=== PATIENT | female | born 1950 | race Caucasian/White ===

== ENCOUNTER 2022-10-23 16:34 | Inpatient (IN) | payer MEDICARE, BC ==
[~2022-10-23] VITALS: Ht 170.2 cm; Wt 88.9 kg
--- NOTE | 2022-10-23 16:51 | NUR ---
[id number] FROM HOME FOR RIGHT HIP PAIN S/P MECHANICAL FALL. NO LOC NO HEAD INJURY. PT IS ALSO COMPLAINING OF RIGHT SIDED CHEST WALL PAIN. PT RECEIVED 100MCG OF [employer] COMMUNITY RECREATION COORDINATOR. PT STATES HER PAIN IS TOLERABLE WHEN SHE IS STILL BUT IS 10/10 WHEN SHE SLIGHTLY MOVES.
[2022-10-23] MEDS ORDERED: MORPHINE SULFATE INJ 2 MG/ML DISP.SYRIN IV ONE (17:00)
[2022-10-23] MEDS ORDERED: MORPHINE SULFATE INJ 2 MG/ML DISP.SYRIN ONE (17:02)
--- NOTE | 2022-10-23 17:44 | NUR ---
PT RETURNED FROM CT VIA [facility]
[2022-10-23] MEDS ORDERED: KETOROLAC TROMETHAMINE INJ 30 MG/ML VIAL IV ONE (18:30)
[2022-10-23] MEDS ORDERED: KETOROLAC TROMETHAMINE INJ 30 MG/ML VIAL ONE (18:35)
[2022-10-23 18:46] LABS: BASOPHILS % (AUTO) 0.3 % (0.0-2.0); EOSINOPHILS % (AUTO) 0.5 % (0.0-6.0); HEMATOCRIT 42 % (33-45); HEMOGLOBIN 13.5 g/dL (11.5-14.8); LYMPHOCYTES # (AUTO) 1.8 K/uL (0.8-4.8); LYMPHOCYTES % (AUTO) 11.4 % (20.0-44.0); MEAN CORPUSCULAR HGB CONC 32 g/dl (31.0-36.0); MEAN CORPUSCULAR VOLUME 95 fL (82-100); MONOCYTES # (AUTO) 0.6 K/uL (0.1-1.30); MONOCYTES % (AUTO) 3.8 % (2.0-12.0); NEUTROPHILS # (AUTO) 13.5 K/uL (1.8-8.9); PLATELET COUNT (AUTO) 380 K/uL (150-450); RED BLOOD CELL COUNT(AUTO) 4.44 MIL/uL (4.0-5.2)
--- NOTE | 2022-10-23 18:49 | NUR ---
MARIANO COLLECTED AND SENT
[2022-10-23 19:03] LABS: CALCIUM, SERUM 9.5 mg/dL (8.5-10.1); CREATININE 0.9 mg/dL (0.6-1.3); POTASSIUM 2.9 mmol/L (3.5-5.1)
--- NOTE | 2022-10-23 19:27 | NUR ---
[facility] CALLED BUILDINGS PAINTER PAGED.
[2022-10-23] MEDS ORDERED: POTASSIUM CHLORIDE 20 MEQ POWDER PACKET PO ONE (19:30)
--- NOTE | 2022-10-23 19:30 | NUR ---
RECEIVED REPORT FROM EFREM ROBLERO. PT IS FOR ADMISSION D/T RIGHT FEMUR FRACTURE. PT IS AAPX4. ABLE TO MAKE NEEDS KNOWN. HAS IV MARKUS ON RIGHT AC G18. ATTACHED TO MONITOR. VITALS CHECKED.
[2022-10-23] MEDS ORDERED: Z GUARD REMEDY 4 OZ OINT TP PRN (20:30)
[2022-10-23] MEDS ORDERED: MAGNESIUM HYDROXIDE 30 ML UDC PO PRN (20:30)
[2022-10-23] MEDS ORDERED: ACETAMINOPHEN 325 MG TABLET PO PRN (20:30)
[2022-10-23] MEDS ORDERED: ONDANSETRON HCL/PF 4 MG/2 ML VIAL IVP PRN (20:30)
--- NOTE | 2022-10-23 20:31 | NUR ---
REPORT GIVEN TO EFREM FELIX
--- NOTE | 2022-10-23 20:52 | NUR ---
TRANSFERRED TO ROOM VIA HOSPITAL BED
--- NOTE | 2022-10-23 21:30 | NUR ---
FIRE OFFICER ADMITTING NOTES ADMITTED A 72 YEAR OLD FEMALE FROM ER CAME IN WITH RANDALL, WITH RIGHT HIP FRACTURE AND RIGHT RIB PAIN. TRANSFERRED PATIENT SAFELY AND SECURED, WITH IV ACCESS AT LEFT AC #18G PATENT AND INTACT. HEAD TO TOE PHYSICAL ASSESSMENT DONE, HISTORY TAKEN AND RECORDED, PICTURE TAKEN PLACED ON CHART. VITALS SIGNS TAKEN AND RECORDED,PM CARE RENDERED, ATTENDING PHYSICIAN INFORMED, MEDICATION RECONCILE DONE.WITH ORDER'S MADE AND CARRIED OUT. ORIENTATION TO THE UNIT DONE. KEPT BED ON LOWER LOCKED POSITION, KEPT SIDE RAILS UP X 2 ALL THE TIME, SAFETY PRECAUTIONS DONE, CONTINUE TO MONITOR
[2022-10-23] MEDS: MORPHINE SULFATE INJ 2 MG/ML DISP.SYRIN IV PRN (22:28)
--- NOTE | 2022-10-23 22:30 | NUR ---
RN NOTES RECEIVED ORDER FOR CHANEY CATHETER INSERTION, INSERTED F16 CHANEY CATHETER CONNECTED TO URINE BAG NOTED URINE OUTPUT, URINE SPECIMEN COLLECTED AND SENT TO LABORATORY. WILL CONTINUE TO MONITOR
[2022-10-23] MEDS ORDERED: VENL150C2 PO (23:48)
[2022-10-23] MEDS ORDERED: LISI40TA13 PO (23:48)
[2022-10-23] MEDS ORDERED: SERT25TA PO (23:48)
[2022-10-23] MEDS ORDERED: FLUT1BLS IH (23:48)
[2022-10-23] MEDS ORDERED: HYDR25TA4 PO (23:48)
[2022-10-23] MEDS ORDERED: CHOL100045 PO (23:48)
[2022-10-23] MEDS ORDERED: ICOS1CAP PO (23:48)
[2022-10-23] MEDS ORDERED: AMLO10TA4 PO (23:48)
[2022-10-23] MEDS ORDERED: ASPI-1420 PO (23:48)
[2022-10-23] MEDS ORDERED: ATOR80TA PO (23:48)
[2022-10-23] MEDS ORDERED: LEVO125T8 PO (23:48)
[2022-10-23] MEDS ORDERED: LISI20TA PO (23:48)
[2022-10-23] MEDS ORDERED: RANO500T3 PO (23:48)
[2022-10-23] MEDS ORDERED: METO200T49 PO (23:48)
[2022-10-23] MEDS: IV D5/0.45 NACL 1,000 ML IV PRN (23:57)
--- NOTE | 2022-10-24 | NUR ---
RN NOTES PATIENT PLACED ON NOTHING PER OREM. INSTRUCTED PATIENT NO DRINKS OR FOOD STARTING THIS TIME.
[2022-10-24] MEDS ORDERED: ALBUTEROL FS 2.5 MG/3 ML VIAL.NEB NEB PRN (00:30)
[2022-10-24] MEDS ORDERED: IPRATROPIUM NEB FS 0.5 MG/2.5 ML AMPUL.NEB NEB PRN (00:30)
--- NOTE | 2022-10-24 01:08 | NUR ---
EFREM NOTES PATIENT IS ON NOCTURNAL BiPAP WITH OWN MACHINE FROM HOME, HOOKED PATIENT TO BiPAP MACHINE AND WELL TOLERATED. WILL CONTINUE TO MONITOR Addendum: 10/24/22 at 0554 by Josseline Chi RN WRONG ENTRY.
[2022-10-24 02:16] LABS: BILIRUBIN,URINE 1+ (NEGATIVE); COLOR,URINE YELLOW (YELLOW); LEUKOCYTE ESTERASE ,URINE NEGATIVE (NEGATIVE); NITRITE, URINE NEGATIVE (NEGATIVE); PROTEIN,URINE TRACE mg/dl (NEGATIVE); UGLUCOSE NEGATIVE (NEGATIVE); UROBILINOGEN,URINE 0.2 EU/dL (0.2)
[2022-10-24 02:37] LABS: BACTERIA,URINE None seen /HPF (None Seen); MUCUS,URINE Few /LPF (None Seen); RBC,URINE NONE SEEN /HPF (0-2); SQUAMOUS EPITHELIAL CELL,UR 0-2 /HPF (None Seen); WBC,URINE NONE SEEN /HPF (0-3)
--- NOTE | 2022-10-24 06:43 | NUR ---
CONSTRUCTION SAFETY MANAGER NOTES PATIENT IS IN BED, ASLEEP ON ROOM AIR SATURATING WELL. ON MODERATE HIGH BACK REST POSITION. NO SOB/ NOTED AT THIS TIME. PATIENT IS ON NPO MAINTAINED, WITH IV ACCESS AT RIGHT AC WITH D5 1/2 NS 1L AT 75ML/HR INFUSING WELL NO SWELLING OR INFILTRATION NOTED. FOR POSSIBLE SURGERY TODAY NO ORDERS YET.FOR CARDIO CLEARANCE TODAY. WITH CHANEY CATHETER CONNECTED TO URINE BAG WITH URINE NOTED. PAIN MANAGEMENT DONE. KEPT BED ON LOWER LOCKED POSITION, KEPT SIDE RAILS UP X 3. KEPT PATIENT WARM AND COMFORTABLE. WILL CONTINUE TO MONITOR.
[2022-10-24] MEDS: LEVOTHYROXINE SODIUM 125 MCG TABLET PO SCH (06:52)
[2022-10-24 06:57] LABS: BASOPHILS % (AUTO) 0.3 % (0.0-2.0); EOSINOPHILS % (AUTO) 5.2 % (0.0-6.0); HEMATOCRIT 37 % (33-45); HEMOGLOBIN 12.5 g/dL (11.5-14.8); LYMPHOCYTES # (AUTO) 1.9 K/uL (0.8-4.8); LYMPHOCYTES % (AUTO) 20.6 % (20.0-44.0); MEAN CORPUSCULAR HGB CONC 34 g/dl (31.0-36.0); MEAN CORPUSCULAR VOLUME 94 fL (82-100); MONOCYTES # (AUTO) 0.5 K/uL (0.1-1.30); MONOCYTES % (AUTO) 5.5 % (2.0-12.0); NEUTROPHILS # (AUTO) 6.3 K/uL (1.8-8.9); NEUTROPHILS % (AUTO) 68.4 % (43.0-81.0); PLATELET COUNT (AUTO) 309 K/uL (150-450); RED BLOOD CELL COUNT(AUTO) 3.95 MIL/uL (4.0-5.2); WHITE BLOOD COUNT (AUTO) 9.2 K/uL (4.3-11.0)
[2022-10-24 07:00] VITALS: BP 112/70
[2022-10-24 07:14] LABS: CHOLESTEROL 133 mg/dL (<200); HDL CHOLESTEROL 55 mg/dL (40-60); LDL 69 mg/dL (0-99); TRIGLYCERIDES 116 mg/dL (30-150)
[2022-10-24 07:32] LABS: ALANINE AMINOTRANSFERASE 29 U/L (12-78); ALBUMIN 3.5 g/dL (3.4-5.0); ALKALINE PHOSPHATASE 50 U/L (46-116); ASPARTATE AMINOTRANSFERASE 17 U/L (15-37); BILIRUBIN,DIRECT 0.2 mg/dL (0.0-0.2); BILIRUBIN,TOTAL 0.8 mg/dL (0.2-1.0); CALCIUM, SERUM 8.8 mg/dL (8.5-10.1); CARBON DIOXIDE 28 mmol/L (21-32); CHLORIDE 105 mmol/L (98-107); CREATININE 0.8 mg/dL (0.6-1.3); GLUCOSE 126 mg/dL (74-106); MAGNESIUM 1.7 mg/dL (1.8-2.4); POTASSIUM 3.2 mmol/L (3.5-5.1); SODIUM SERUM 141 mmol/L (136-145); TOTAL PROTEIN, SERUM 6.2 g/dL (6.4-8.2); UREA NITROGEN, BLOOD 21 mg/dL (7-18)
--- NOTE | 2022-10-24 07:43 | NUR ---
MS RN OPENING NOTE RECEIVED PATIENT ASLEEP IN BED, ON MODERATE HIGH BACK REST. STABLE ON ROOM AIR, BREATHING EVEN AND UNLABORED. NO S/S OF DISTRESS NOTED; NO PAIN AT THIS TIME, WITH IV ACCESS AT RAC G#18 WITH RUNNING D5 1/2 NS AT 75 ML/HOUR INFUSING WELL. WITH CHANEY CATHETER WITHOUT OUTPUT OF THE MOMENT. SAFETY MEASURES IMPLEMENTED, BED LOCKED IN LOWEST POSITION, SIDE RAILS UP X 2, CALL LIGHT AND TABLE WITHIN REACH; WILL CONTINUE TO MONITOR PATIENT THROUGHOUT SHIFT.
[2022-10-24] MEDS: SERTRALINE HCL 25 MG TABLET PO SCH (09:00)
[2022-10-24] MEDS ORDERED: VENLAFAXINE XR 150 MG CAP.SR.24H PO SCH (09:00)
[2022-10-24] MEDS: AMLODIPINE BESYLATE 10 MG TABLET PO SCH (09:00)
[2022-10-24] MEDS: VENLAFAXINE XR 150 MG CAP.SR.24H PO SCH (09:00)
[2022-10-24] MEDS: LISINOPRIL (20MG) 20 MG TABLET PO SCH (09:00)
[2022-10-24] MEDS: METOPROLOL SUCCINATE 50 MG TAB.SR.24H PO SCH (09:00)
[2022-10-24] MEDS: RANOLAZINE 500 MG TAB.ER.12H PO SCH ×2 (09:00→17:36)
[2022-10-24] MEDS: HYDROCHLOROTHIAZIDE 25 MG TABLET PO SCH (09:00)
[2022-10-24] MEDS: MORPHINE SULFATE INJ 2 MG/ML DISP.SYRIN IV PRN ×2 (09:50→14:52)
[2022-10-24] MEDS: Magnesium 1GM/D5W 100ML PREMIX 100 ML IV SCH ×2 (11:35→12:46)
--- NOTE | 2022-10-24 12:08 | NUR ---
RN NOTE PATIENT FIRST BAG OF MAGNESIUM IS INFUSING, SECOND BAG OF MAGNESIUM WAS REMOVED LATE FROM THE ACTIVE ORDERS MEDICATIONS ON THE OMNICELL, THE OMNICELL INDICATED FORCE ENTRY, CHARGE NURSE WAS CALLED TO VERIFY ONLY ONE BAG WAS REMOVED. SECOND BAG OF MAGNESIUM WILL BE ADMINISTERED LATE. PHARMACY WAS CALLED, AND SPOKE WITH ODESSA, HE SAID TO JUST ASK THE CHARGE NURSE. CHARGE NURSE AWARE.
[2022-10-24] MEDS: POTASSIUM CL. PREMIX PERIPHER. 50 ML IV SCH ×4 (13:53→17:24)
[2022-10-24] MEDS: IV D5/0.45 NACL 1,000 ML IV PRN (13:58)
[2022-10-24 16:00] VITALS: BP 121/67
--- NOTE | 2022-10-24 16:20 | NUR ---
RN NOTE PATIENT STATED MORPHINE WAS NOT WORKING FOR HER SINCE YESTERDAY. DR WAS INFORMED AND ORDER DILAUDID 0.5 MG IV Q3H PRN. ORDER NOTED AND CARRIED OUT. WILL CONTINUE TO MONITOR
[2022-10-24] MEDS: HYDROMORPHONE 1 MG/1 ML DISP.SYRIN IV PRN ×2 (17:36→20:45)
--- NOTE | 2022-10-24 19:30 | NUR ---
MS RN OPENING NOTE RECEIVED PATIENT FROM AM NURSE; PATIENT AWAKE IN BED WITH DAUGHTER AT BEDSIDE, A/O X 4, ABLE TO MAKE NEEDS KNOWN; STABLE ON ROOM AIR, BREATHING EVENLY AND NO S/S OF DISTRESS NOTED; WITH IV ACCESS AT RAC INFUSING WITH D5 1/2 NS AT 75 ML/HOUR; WITH CHANEY CATHETER IN PLACE DRAINING TO YELLOW COLORED URINE; ENCOURAGED VERBALIZATION OF NEEDS; SAFETY MEASURES IMPLEMENTED, BED LOCKED IN LOWEST POSITION, SIDE RAILS UP X 2, CALL LIGHT AND WITHIN REACH; WILL CONTINUE TO MONITOR THROUGHOUT SHIFT
--- NOTE | 2022-10-24 19:45 | NUR ---
MS RN CLOSING NOTE PATIENT AWAKE IN BED A/O X4. ON ROOM AIR, NO S/S OF DISTRESS AND NO SOB NOTED. ABLE TO MAKE NEEDS KNOWN. PATIENT HAS IV AT RAC WITH D5 1/2 NS AT 75ML/HOUR, INFUSING WELL. NO PAIN NOTED AT THIS TIME. CONSENT SIGNED FOR PROCEDURE, ANESTHESIA AND BLOOD TRANSFUSION FOR RIGHT HIP HEMIARTHROPLASTY SCHEDULED FOR 7AM TOMORROW. CHANEY CATHETER IS IN PLACE WITH OUTPUT OF 400 ML. ALL DUE MEDICATIONS ADMINISTERED. ALL NEEDS ATTENDED AND ANTICIPATED. FALL AND SAFETY PRECAUTION IN PLACE: BED LOCKED AND AT THE LOWEST POSITION, SIDE RAILS UP X2, CALL LIGHT WITHIN REACH. WILL ENDORSE TO EDGER MACHINE HELPER NURSE.
[2022-10-24 20:00] VITALS: BP 140/87
[2022-10-24] MEDS: ATORVASTATIN 40 MG TABLET PO SCH (21:18)
[2022-10-25] MEDS: IV D5/0.45 NACL 1,000 ML IV PRN (04:45)
[2022-10-25] MEDS ORDERED: POLYMYXIN B SULFATE 500,000 UNITS ONE (06:29)
[2022-10-25] MEDS ORDERED: ANESTHESIA TRAY IN PYXIS 1 EA TRAY MC ONE (06:30)
[2022-10-25] MEDS ORDERED: BUPIVACAINE 0.25% 75 MG/30 ML VIAL ONE (06:30)
[2022-10-25] MEDS: LEVOTHYROXINE SODIUM 125 MCG TABLET PO SCH (06:38)
[2022-10-25] MEDS ORDERED: FENTANYL PF 100MCG/2ML AMPUL ONE ×2 (06:49→06:50)
[2022-10-25] MEDS ORDERED: MIDAZOLAM HCL 2 MG/2ML VIAL ONE (06:50)
[2022-10-25] MEDS ORDERED: FAMOTIDINE/PF INJ 20 MG/2 ML VIAL IV ONE (06:50)
[2022-10-25] MEDS ORDERED: HYDROMORPHONE INJ 2 MG/ML DISP.SYRIN ONE (06:50)
[2022-10-25] MEDS ORDERED: ROCURONIUM BROMIDE 50 MG/5 ML ONE (06:50)
[2022-10-25 06:53] LABS: BASOPHILS % (AUTO) 0.3 % (0.0-2.0); EOSINOPHILS % (AUTO) 3.4 % (0.0-6.0); HEMATOCRIT 38 % (33-45); HEMOGLOBIN 12.7 g/dL (11.5-14.8); LYMPHOCYTES # (AUTO) 1.4 K/uL (0.8-4.8); LYMPHOCYTES % (AUTO) 13.3 % (20.0-44.0); MEAN CORPUSCULAR HGB CONC 33 g/dl (31.0-36.0); MEAN CORPUSCULAR VOLUME 94 fL (82-100); MONOCYTES # (AUTO) 0.5 K/uL (0.1-1.30); MONOCYTES % (AUTO) 4.8 % (2.0-12.0); NEUTROPHILS # (AUTO) 8.5 K/uL (1.8-8.9); NEUTROPHILS % (AUTO) 78.2 % (43.0-81.0); PLATELET COUNT (AUTO) 263 K/uL (150-450); RED BLOOD CELL COUNT(AUTO) 4.08 MIL/uL (4.0-5.2); WHITE BLOOD COUNT (AUTO) 10.8 K/uL (4.3-11.0)
--- NOTE | 2022-10-25 06:57 | NUR ---
MS RN CLOSING NOTE PATIENT IS A/O X 4, ABLE TO MAKE NEEDS KNOWN; STABLE ON ROOM AIR, BREATHING EVENLY AND NO S/S OF DISTRESS NOTED; WITH IV ACCESS AT RAC INFUSING WITH D5 1/2 NS AT 75 ML/HOUR; WITH CHANEY CATHETER IN PLACE DRAINING TO YELLOW COLORED URINE; ADMINISTERED MEDICATIONS PRESCRIBED; PATIENT'S NEEDS ATTENDED; PATIENT WAS MAINTAINED ON NPO POST MIDNIGHT FOR SURGERY THIS AM; SAFETY MEASURES IMPLEMENTED, BED LOCKED IN LOWEST POSITION, SIDE RAILS UP X 2, CALL LIGHT AND WITHIN REACH; OR PICKED UP PATIENT AT 0625 IN STABLE CONDITION.
[2022-10-25] MEDS ORDERED: TRANEXAMIC ACID 3,000 MG in SODIUM CHLORIDE IRRIG SOLUTION 70 ML IR ONE (07:00)
--- NOTE | 2022-10-25 07:19 | NUR ---
MS RN NOTE RECEIVED ENDORSEMENT FROM EFREM MARTINES. PATIENT STILL AT OR FOR SCHEDULED PROCEDURE. WILL WAIT FOR RECOVERY ROOM ENDORSEMENT.
[2022-10-25 07:30] LABS: ALANINE AMINOTRANSFERASE 22 U/L (12-78); ALBUMIN 3.1 g/dL (3.4-5.0); ALKALINE PHOSPHATASE 52 U/L (46-116); ASPARTATE AMINOTRANSFERASE 15 U/L (15-37); BILIRUBIN,TOTAL 1.1 mg/dL (0.2-1.0); CALCIUM, SERUM 8.8 mg/dL (8.5-10.1); CARBON DIOXIDE 25 mmol/L (21-32); CHLORIDE 103 mmol/L (98-107); CREATININE 0.7 mg/dL (0.6-1.3); GLUCOSE 145 mg/dL (74-106); MAGNESIUM 1.9 mg/dL (1.8-2.4); PHOSPHORUS 3.7 mg/dL (2.5-4.9); POTASSIUM 3.8 mmol/L (3.5-5.1); SODIUM SERUM 136 mmol/L (136-145); TOTAL PROTEIN, SERUM 6.2 g/dL (6.4-8.2); UREA NITROGEN, BLOOD 11 mg/dL (7-18)
[2022-10-25] MEDS: METOPROLOL SUCCINATE 50 MG TAB.SR.24H PO SCH (09:00)
[2022-10-25] MEDS: VENLAFAXINE XR 150 MG CAP.SR.24H PO SCH (09:00)
[2022-10-25] MEDS: LISINOPRIL (20MG) 20 MG TABLET PO SCH (09:00)
[2022-10-25] MEDS: SERTRALINE HCL 25 MG TABLET PO SCH (09:00)
[2022-10-25] MEDS: RANOLAZINE 500 MG TAB.ER.12H PO SCH ×2 (09:00→17:46)
[2022-10-25] MEDS: AMLODIPINE BESYLATE 10 MG TABLET PO SCH (09:00)
[2022-10-25] MEDS: HYDROCHLOROTHIAZIDE 25 MG TABLET PO SCH (09:00)
[2022-10-25] MEDS ORDERED: MORPHINE SULFATE INJ 4 MG/ML DISP.SYRIN IV PRN (10:00)
[2022-10-25] MEDS ORDERED: SENNOSIDES 8.6 MG TABLET PO PRN ×2 (10:30)
[2022-10-25] MEDS ORDERED: BISACODYL SUPP (10 MG) 10 MG/SUPP.RECT SUPP.RECT RC PRN (10:30)
[2022-10-25] MEDS ORDERED: HYDROCODONE/APAP 5/325MG TABLET PO PRN (10:30)
[2022-10-25] MEDS ORDERED: ACETAMINOPHEN 325 MG TABLET PO PRN (10:30)
[2022-10-25] MEDS ORDERED: DOCUSATE SODIUM 250 MG CAPSULE PO PRN (10:30)
[2022-10-25] MEDS ORDERED: DOCUSATE SODIUM 100 MG CAPSULE PO PRN (10:30)
--- NOTE | 2022-10-25 10:30 | NUR ---
MS RN NOTE PATIENT BACK FROM RECOVERY ROOM. PATIENT IS SLEEPY BUT EASY TO WAKE UP. PATIENT IS ALERT AND ORIENTED X 4. PATIENT WITH RIGHT AC G 18 WITH ONGOING IVF OF D5 1/2 NS RUNNING AT 75 ML/HR INFUSING WELL. PATIENT IS S/P RIGHT HIP ARTHROPLASTY WITH DRESSING ON THE RIGHT HIP DRY AND INTACT. WITH CHANEY CATHETER TO URINE BAG, WITH YELLOWISH URINE VIA GRAVITY. WITH OXYGEN AT 6LPM VIA NASAL CANULA SATURATING AT 93%. COMFORT MEASURES PROVIDED. COMFORT MEASURES PROVIDED. VS WNL 112/66, 81, 93%, 98.4. NO COMPLAIN OF PAIN. WILL CONTINUE WITH PLAN OF CARE.
--- NOTE | 2022-10-25 11:15 | NUR ---
MS RN NOTE PATIENT REQUESTED TO SLEEP, TRIED TO PLACE THE CPAP BUT PATIENT NOTED TO HAVE OXYGEN DESATURATING TO 84%. PATIENT HOOKED BACK TO OXYGEN VIA NASAL CANULA AT 6LPM. WITH O2 SAT AT 94%. WILL KEEP OXYGEN AT THIS TIME. MD NOTIFIED. NO SIGNS OF DISTRESS. WITH DAUGHTER AT BEDSIDE. IN STABLE CONDITION.
[2022-10-25] MEDS: HYDROMORPHONE 1 MG/1 ML DISP.SYRIN IV PRN ×4 (11:31→21:12)
[2022-10-25] MEDS: ENOXAPARIN SODIUM 40 MG/0.4 ML DISP.SYRIN SQ SCH (14:31)
[2022-10-25] MEDS: ANCEF 1 GM/50 ML D5W IV SCH ×4 (14:47→22:14)
[2022-10-25] MEDS: HYDROCODONE/APAP 5/325MG TABLET PO PRN ×2 (15:46→22:07)
[2022-10-25 16:00] VITALS: BP 144/76
--- NOTE | 2022-10-25 18:36 | NUR ---
MS RN CLOSING NOTES ALERT AND ORIENTED X 4. CURRENT O2 SUPPORT NASAL CANNULA AT 6LPM TOLERATED. IV SITE ON RIGHT AC INTACT AND PATENT WITH IV FLUIDS D5 1/2 NS AT 75ML/HR. RESIDENT WAS S/P RIGHT HEMIARTHROPLASTY, NO ACTIVE BLEEDING NOTED, DRESSING CLEAN AND INTACT. CURRENT DIET TOLERATED, NO COMPLAINT OF NAUSEA AND VOMITING. WITH CHANEY CATHETER DRAINING WELL, PATIENT COMPLAINED OF PAIN 8/10, PAIN MEDICATION WAS GIVEN ORDERED DILMARINA [id number] AND REASSESSED AFTER 30 MINUTES AND WAS EFFECTIVE. WILL CONTINUE TO MONITOR AND WILL ENDORSE ACCORDINGLY TO NEXT SHIFT.
[2022-10-25 20:00] VITALS: BP 142/76
--- NOTE | 2022-10-25 21:12 | NUR ---
RN notes Pt is complaining of R hip fx 10/10 on pain scale. Administered dilaudid/iv as ordered for pain. VS is stable. safety precautions is maintained. will continue to monitor.
--- NOTE | 2022-10-25 22:20 | NUR ---
RN notes Pt is complaining of R hip 7/10 on pain level. Administered norco/2 tabs/po as ordered. safety precautions is maintained. will continue to monitor.
[2022-10-25] MEDS: ATORVASTATIN 40 MG TABLET PO SCH (22:28)
--- NOTE | 2022-10-25 22:28 | NUR ---
SILVICULTURE FORESTER Opening Note Pt in bed, awake, A/O x4. On O2 6L via NC. IV access RAC infusing D5 1/2 NS at 75ml/h. S/p Right hemiarthroplasty. Has mala stein. Safety measure in place, bed low, locked, bed larm, call light at reach. Will cont to monitor pt.
--- NOTE | 2022-10-25 23:03 | NUR ---
LABORER POWERHOUSE Opening Note Pt in bed, awake, A/O x4. On O2 6L NC. IV at RAC #18. S/p Right hemiarthroplasty. Koroma cath. Safety measures in place, bed low, bed locked, call light at reach, side rails up x2. Will cont to monitor pt.
--- NOTE | 2022-10-25 23:15 | NUR ---
JUNIOR ASSISTANT MANAGER Note Took 40mg Atorvastatin from [facility] under schedule and 40mg under active med
[2022-10-26] MEDS: HYDROMORPHONE 1 MG/1 ML DISP.SYRIN IV PRN ×6 (01:43→19:46)
--- NOTE | 2022-10-26 01:50 | NUR ---
RN notes Pt is complaining of pain and requesting dilaudid. administered dilaudid as ordered for pain.When primary about to give dilaudid, Pt stated " I don't trust you!! agitated easily and yelling loud. Primary nurse called EFREM Romero to be a witness for dilaudid meds. Pt informed at the begining of shift that Pt doesn't like primary nurse. Explained to Pt. Pt gets agitated and yelled at primary nurse. Pt stated " I want you to give dilaudid every hour!! Now!! You are late!! Informed Pt that Pt was asleep. Pt didn't called at all for pain meds. Dilaudid and norco were given already at the beginning of shift per Pt requested. Explained that pain meds is prn per MD ordered. Charge nurse is aware and informed.
--- NOTE | 2022-10-26 04:48 | NUR ---
RN notes Pt is complaining of R hip pain 03/20 and requesting dilaudid. administered dilaudid as ordered for pain. vs is stable. safety precautions is maintained. will continue to monitor. Addendum: 10/26/22 at 1855 by KAMARI LIN RN EFREM Zapata was a witness during dilaudid administered. Jodi at the bedside.
[2022-10-26] MEDS: LEVOTHYROXINE SODIUM 125 MCG TABLET PO SCH (06:23)
[2022-10-26 07:00] LABS: BASOPHILS % (AUTO) 0.3 % (0.0-2.0); EOSINOPHILS % (AUTO) 3.8 % (0.0-6.0); HEMATOCRIT 34 % (33-45); HEMOGLOBIN 11.1 g/dL (11.5-14.8); LYMPHOCYTES # (AUTO) 1.2 K/uL (0.8-4.8); LYMPHOCYTES % (AUTO) 12.4 % (20.0-44.0); MEAN CORPUSCULAR HGB CONC 33 g/dl (31.0-36.0); MEAN CORPUSCULAR VOLUME 96 fL (82-100); MONOCYTES # (AUTO) 0.6 K/uL (0.1-1.30); MONOCYTES % (AUTO) 6.4 % (2.0-12.0); NEUTROPHILS # (AUTO) 7.2 K/uL (1.8-8.9); NEUTROPHILS % (AUTO) 77.1 % (43.0-81.0); PLATELET COUNT (AUTO) 218 K/uL (150-450); WHITE BLOOD COUNT (AUTO) 9.4 K/uL (4.3-11.0)
--- NOTE | 2022-10-26 07:20 | NUR ---
MS RN OPENING NOTE RECEIVED PATIENT ALERT AND ORIENTED X 4. WITH OXYGEN AT 6LPM VIA NASAL CANULA SATURATING AT 96%. PATIENT WITH RIGHT AC G 18 WITH ONGOING IVF OF D5 1/2 NS RUNNING AT 75 ML/HR INFUSING WELL. PATIENT IS S/P RIGHT HIP ARTHROPLASTY WITH DRESSING ON THE RIGHT HIP DRY AND INTACT. WITH CHANEY CATHETER TO URINE BAG, WITH YELLOWISH URINE VIA GRAVITY. COMFORT MEASURES PROVIDED. SAFETY MEASURES ENSURED WITH BED IN LOWEST LOCKED POSITION, SIDERAILS RAISED AND CALL LIGHT WITHIN REACT AT ALL TIMES. COMPLAINED OF DISCOMFORT, WILL CHECK ON PAIN MEDICATION. WILL CONTINUE WITH PLAN OF CARE.
[2022-10-26 07:22] LABS: ALBUMIN 2.7 g/dL (3.4-5.0); BILIRUBIN,TOTAL 0.9 mg/dL (0.2-1.0); CALCIUM, SERUM 8.8 mg/dL (8.5-10.1); CREATININE 0.6 mg/dL (0.6-1.3); MAGNESIUM 1.6 mg/dL (1.8-2.4); POTASSIUM 4.4 mmol/L (3.5-5.1); TOTAL PROTEIN, SERUM 5.9 g/dL (6.4-8.2)
--- NOTE | 2022-10-26 07:41 | NUR ---
ROUTER OPERATOR PIN Closing Note Pt in bed, awake, A/O x4. On O2 6L via NC, no s/s of SOB/distress/pain. IV access RAC infusing D5 1/2 NS at 75ml/h, in place, patent, no s/s of infiltration/infection. S/p Right hemiarthroplasty. Has arreola cath. Safety measure in place, bed low, locked, bed alarm, call light at reach. Endorse to the next shift nurse to cont to monitor pt.
[2022-10-26] MEDS: METOPROLOL SUCCINATE 50 MG TAB.SR.24H PO SCH (09:23)
[2022-10-26] MEDS: RANOLAZINE 500 MG TAB.ER.12H PO SCH ×2 (09:24→16:44)
[2022-10-26] MEDS: HYDROCHLOROTHIAZIDE 25 MG TABLET PO SCH (09:24)
[2022-10-26] MEDS: LISINOPRIL (20MG) 20 MG TABLET PO SCH (09:24)
[2022-10-26 09:25] VITALS: BP 133/77
[2022-10-26] MEDS: SERTRALINE HCL 25 MG TABLET PO SCH (09:25)
[2022-10-26] MEDS: VENLAFAXINE XR 150 MG CAP.SR.24H PO SCH (09:25)
[2022-10-26] MEDS: AMLODIPINE BESYLATE 10 MG TABLET PO SCH (09:25)
[2022-10-26] MEDS: ENOXAPARIN SODIUM 40 MG/0.4 ML DISP.SYRIN SQ SCH (10:50)
[2022-10-26] MEDS: Magnesium 1GM/D5W 100ML PREMIX 100 ML IV SCH ×2 (11:45→13:07)
--- NOTE | 2022-10-26 11:50 | NUR ---
MS RN NOTE GIVEN IV DILAUDID AT 1050 ORDERED. UNABLE TO WASTE MED IMMEDIATELY, PATIENT UNDERWENT PHYSICAL THERAPY, ASSISTED PATIENT/ PT. SEEN BY MD AFTERWARDS AND THEN I SPOKE WITH THE DAUGHTER REGARDING PATIENT'S REQUESTS AND CONCERNS AND MD PLANS.
--- NOTE | 2022-10-26 13:00 | NUR ---
MS RN NOTE CHANEY CATHETER REMOVED ORDERED AND PLACED PATIENT ON [place]. WILL MONITOR FOR URINARY RETENTION. PATIENT FOR DISCHARGE. SPOKE WITH DAUGHTER AND AGREED WITH TRANSFER. PATIENT NOTIFIED OF TRANSFER. HEALTH TEACHING DONE REGARDING DISCHARGE AND DISCHARGE INSTRUCTIONS. VERBALIZED UNDERSTANDING AND APPRECIATION. CLARIFIED WEIGHT BEARING STATUS WITH REG SUPERVISOR TUBING. PATIENT IS ON WBAT. WILL CONTINUE WITH PLAN OF CARE.
--- NOTE | 2022-10-26 13:41 | NUR ---
MS RN NOTE PATIENT UNDERGOING PHYSICAL THERAPIST. COMPLAINING OF PAIN. DILAUDID DUE SOON. RELAXATION TECHNIQUES TAUGHT. VERBALIZED UNDERSTANDING.
--- NOTE | 2022-10-26 15:14 | NUR ---
MS RN NOTE COMPLETED IV MAGNESIUM TOOK OUT 4 INITIALLY ALREADY OPENED THE PACKET COVER BEFORE REALIZING I ONLY NEEDED 2. WASTED 1 BAG AND RETURNED THE OTHER BAG.
[2022-10-26] MEDS: HYDROCODONE/APAP 5/325MG TABLET PO PRN (16:45)
--- NOTE | 2022-10-26 17:25 | NUR ---
MS RN NOTE CALLED [facility] BUT APPARENTLY, NOBODY CAN TAKE THE CALL. WILL TRY TO CALL AGAIN.
--- NOTE | 2022-10-26 18:19 | NUR ---
MS RN NOTE CALLED [facility] FOR REHAB MEDICINE AGAIN, SPOKE WITH JEROME (MANAGER PURCHASING) STILL NOBODY WAS ABLE TO TAKE THE CALL. SAID THEY ARE BUSY, INCLUDING THE CHARGE NURSE FRANK. THEY WANT ME TO CALL AT 1914 OR LATER FOR REPORT TO BE GIVEN TO THE MOTOR MECHANIC NURSE. I TOLD THEM THE CATERING AND EVENTS MANAGER TIME IS AROUND 1929 AND THAT THEY CAN COME EARLY AND THAT THEY CAN CALL HERE WHEN THEY ARE READY TO HEAR A REPORT. I ALSO TOLD JEROME THAT THE PATIENT WILL NEED OXYGEN ONCE SHE GETS THERE.
--- NOTE | 2022-10-26 18:53 | NUR ---
MS RN CLOSING NOTE PATIENT ALERT AND ORIENTED X 4. WITH OXYGEN AT 3 LPM VIA NASAL CANULA SATURATING AT 93%. PATIENT WITH RIGHT AC G 18 ON [place]L[place]. PATIENT IS S/P RIGHT HIP ARTHROPLASTY WITH DRESSING ON THE RIGHT HIP DRY AND INTACT. COMFORT MEASURES PROVIDED. SAFETY MEASURES ENSURED WITH BED IN LOWEST LOCKED POSITION, SIDERAILS RAISED AND CALL LIGHT WITHIN REACT AT ALL TIMES. ENDORSED TO NEXT SHIFT FOR CONTINUITY OF CARE.
--- NOTE | 2022-10-26 19:39 | NUR ---
MS RN NOTE ENDORS[facility]
--- NOTE | 2022-10-26 19:58 | NUR ---
MS EDUCATION DEPARTMENT CHAIR NOTE PT PICKED UP BY [facility] AT THIS TIME AND ESCORTED TO LOBBY WITH 2 OVERNIGHT HOUSEPERSON VIA [facility]. MEDICATED FOR PAIN WITH DILAUDID 0.5 MG FOR SEVER PAIN OF R HIP ORDERED PRIOR TO TRANSFER TO [facility]. PT STABLE ON O2 @ 3LPM VIA NC, TOLERATING WELL. NO SOB OR S/S OF RESPIRATORY DISTRESS. BREATHING EVEN AND UNLABORED. VITALS WNL. IV ACCESS RAC 18G, INTACT AND PATENT, TO BE LEFT IN FOR TRANSFER TO [facility]. DRESSING C/D/I. PT BELONGINGS ACCOUNTED FOR AND BELONGINGS LIST SIGNED. SENT WITH PATIENT ON [facility]. ID BAND REMOVED. REPORT GIVEN BY BRIDGET TOPETE TO KRYSTAL TOPETE, GOING TO [facility] ROOM 327. CHARGE NURSE SHIRA ANDERSON.
== END 2022-10-26 20:00 | DRG 522 ==
LOC: ER 17:19 → MED 20:24
PROVIDERS: ADMIT Nurse Practitioner Family
PROC: 0SRR0JZ Replacement of Right Hip Joint, Femoral Surface with Synthetic Substitute, Open Approach (ICD-10-PCS; principal; 2022-10-25)
DX: S72.011A Unspecified intracapsular fracture of right femur, initial encounter for closed fracture (principal); I50.9 Heart failure, unspecified; I11.0 Hypertensive heart disease with heart failure; E11.9 Type 2 diabetes mellitus without complications; W01.0XXA Fall on same level from slipping, tripping and stumbling without subsequent striking against object, initial encounter; G47.33 Obstructive sleep apnea (adult) (pediatric); Y92.009 Unspecified place in unspecified non-institutional (private) residence as the place of occurrence of the external cause; Z95.5 Presence of coronary angioplasty implant and graft; E87.6 Hypokalemia; E78.5 Hyperlipidemia, unspecified; Z85.850 Personal history of malignant neoplasm of thyroid; I25.10 Atherosclerotic heart disease of native coronary artery without angina pectoris; F43.9 Reaction to severe stress, unspecified; D72.829 Elevated white blood cell count, unspecified; E89.0 Postprocedural hypothyroidism; I70.0 Atherosclerosis of aorta; J44.9 Chronic obstructive pulmonary disease, unspecified; M47.816 Spondylosis without myelopathy or radiculopathy, lumbar region; Z82.49 Family history of ischemic heart disease and other diseases of the circulatory system; Z87.891 Personal history of nicotine dependence
CPT/HCPCS: 36415; 71045-TC; 71100-TC; 72192-TC; 73502; 80048-TC; 80053-TC; 80061-TC; 80076-TC; 81001; 82962-TC; 83735-TC; 84100-TC; 85025-TC; 85610-TC; 86850-TC; 87081-TC; 93307-TC; 97110-TC; 97530-TC; A4217; A4223; C1776; C9803; G0378; J0690; J1170; J1650; J1885; J2250; J2270; J2405; J2704; J2765; J3010; J3475; J3480; J3490; J7030; J7060